=== PATIENT | male | born 1975 | race Caucasian/White ===

== ENCOUNTER 2019-07-18 15:12 | Emergency (ER) | payer MEDICARE ==
[~2019-07-18] VITALS: Ht 188 cm; Wt 88.5 kg
[2019-07-18] MEDS ORDERED: Keflex500 MG PO (16:08)
[2019-07-18] MEDS ORDERED: Bactrim Ds Tab1 EACH PO (16:08)
[2019-07-18] MEDS ORDERED: RELIEF KNEE CL1 EACH TOP (16:08)
== END 2019-07-18 16:39 | disposition home or self-care (01) ==
LOC: ER 15:12
DX: L03.116 Cellulitis of left lower limb (principal); L03.115 Cellulitis of right lower limb; R60.0 Localized edema; Z79.899 Other long term (current) drug therapy; F17.200 Nicotine dependence, unspecified, uncomplicated
CPT/HCPCS: 99283

== ENCOUNTER 2019-07-19 21:59 | Emergency (ER) | payer MEDICARE ==
[~2019-07-19] VITALS: Ht 188 cm; Wt 88.5 kg
[~2019-07-19 21:59] MED LIST: Bactrim Ds Tab1 EACH PO; Keflex500 MG PO; RELIEF KNEE CL1 EACH TOP
[2019-07-20] MEDS ORDERED: Aldactone50 MG PO (03:06)
== END 2019-07-20 03:54 | disposition home or self-care (01) ==
LOC: ER 21:59
DX: R60.0 Localized edema (principal); Z79.899 Other long term (current) drug therapy
CPT/HCPCS: 99283